=== PATIENT | female | born 1975 | race Caucasian/White ===

== ENCOUNTER 2016-09-14 11:18 | Emergency (ER) | payer MEDICAID ==
[2016-09-14 12:15] LABS: BASOPHILS 0.4 % (0-2); EOSINOPHILS 1.9 % (0-7); HEMATOCRIT 48.7 % (36.0-48.0); HEMOGLOBIN 16.6 g/dL (12-16); IMMATURE GRANULOCYTES 0.3 % (0-5); LYMPHOCYTES 22.4 % (15-50); MCH 31.9 pg (26.0-34.0); MCHC 34.1 g/dL (31.0-37.0); MCV 93.5 fL (80.0-100.0); MEAN PLATELET VOLUME 10.4 fL (7.4-10.4); MONOCYTES 6.5 % (2-11); NEUTROPHILS 68.5 % (40-80); PLATELET COUNT 221 10x3/uL (130-400); RBC 5.21 10x6/uL (4.00-5.40); RDW 13.3 % (11.5-14.5); WBC 9.9 10x3/uL (4.8-10.8)
[2016-09-14 12:46] LABS: ALBUMIN 4.1 g/dL (3.4-5.0); ALKALINE PHOSPHATASE 53 U/L (46-116); ALT (SGPT) 25 U/L (10-68); BILIRUBIN - TOTAL 0.54 mg/dL (0.2-1.3); CALC OSMOLALITY 278 mosm/kg (275-300); CALCIUM 9.1 mg/dL (8.5-10.1); CARBON DIOXIDE 24.3 mmol/L (21.0-32.0); CHLORIDE - SERUM 105 mmol/L (98-107); CREATININE - SERUM 0.9 mg/dL (0.6-1.3); GLUCOSE 93 mg/dL (74-106); POTASSIUM - SERUM 4.1 mmol/L (3.5-5.1); PROTEIN - SERUM 7.5 g/dL (6.4-8.2); SODIUM 139 mmol/L (136-145); UREA NITROGEN 14 mg/dL (7-18); eGFR NON AFRICAN AMERICAN 74 mL/min (90-120)
[2016-09-14 12:57] LABS: CKMB 0.4 U/L (0.0-3.6); CREATINE KINASE 102 UL (21-215)
[2016-09-14 13:00] LABS: TROPONIN-I < 0.017 ng/mL (0.000-0.060)
== END 2016-09-14 13:06 | disposition left against medical advice (07) ==
LOC: D.ER 11:18
PROVIDERS: Emergency Medicine
DX: R07.9 Chest pain, unspecified (principal)